=== PATIENT | male | born 1960 | race Caucasian/White ===

== ENCOUNTER → 2019-12-12 | Outpatient (CLI) | payer MEDICARE, MEDICAID ==
--- NOTE | 2019-12-12 17:23 | RAD ---
Bilateral lower extremity arterial ultrasound History: Nonpalpable pulses bilaterally, history of hypertension and smoking Findings: Multiple grayscale, color, and duplex spectral analysis sonographic images were acquired of the lower extremity arteries bilaterally. There are no previous similar exams. No vessel occlusion is demonstrated. There are mostly triphasic waveforms of the lower extremity arteries bilaterally other than biphasic waveforms of the profunda femoris arteries bilaterally. No significant stenosis is demonstrated. There is scattered mild plaque. Velocities in cm/sec: RIGHT Common femoral artery 161 Profunda femoris artery 41 Proximal SFA 121 Mid SFA 110 Distal SFA 83 Popliteal artery 77 Posterior tibial artery 86 proximally and 126 distally Peroneal artery 48 Anterior tibial artery 72 Dorsalis pedis artery 55 LEFT: Common femoral artery 140 Profunda femoris artery 56 Proximal SFA 95 Mid SFA 88 Distal SFA 98 Popliteal artery 72 Posterior tibial artery 88 proximally and 115 distally Peroneal artery 57 Anterior tibial artery 64 Dorsalis pedis artery 68 Impression: 1. No significant stenosis or vessel occlusion is demonstrated. There is minimal plaque. Electronically signed by: Price Bautista MD (12/12/2019 5:20 PM) [id number]
== END | disposition home or self-care (01) ==
LOC: US 15:15
PROVIDERS: ATTEND Podiatrist
DX: I70.293 Other atherosclerosis of native arteries of extremities, bilateral legs (principal); I10 Essential (primary) hypertension; Z87.891 Personal history of nicotine dependence
CPT/HCPCS: 93925